=== PATIENT | male | born 1965 | race African-American/Black ===

== ENCOUNTER → 2017-11-05 | Outpatient (CLI) | payer OTHER ==
--- NOTE | 2017-11-20 17:01 | ONC ---
[facility] [address] [place] [address] RADIATION ONCOLOGY NOTE Name: NIHARIKAARLIN Rafia Room: [facility]#: [id number] Admission: 11/05/17 Attend Phys: Jerel Renteria MD Discharge: Date of : 65 Report #: [id number] THIS REPORT FOR: //name// CC: Jerel Muller MD DATE OF CONSULT: 11/05/2017 REFERRING PHYSICIANS: Include Claudia Muller MD; Dr. Elijah Costello; Al Quesada M.D.; and Dr. Yeager. [facility] phone is [phone]. 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 HISTORY OF PRESENT ILLNESS: The patient is a 52-year-old man who had bright red blood per rectum for about the last 6 months. He was referred to Dr. Yeager. He had a colonoscopy with Dr. Yeager on 10/07/2017 and he was found to have a fungating sessile nonobstructing ulcerated mass in the distal rectum with a diameter of 3 cm. It was noted to be about 2 cm from the anal verge on digital rectal examination. The pathology revealed a moderate to poorly differentiated rectal cancer. He was referred to the surgeon, Dr. Muller, and he performed a rigid proctosigmoidoscopy and he noted a firm fixed lesion at the top of the anorectal ring that involved 30% of the circumference of the rectum. The patient had an abdominal pelvic CT scan on 10/19/2017, which revealed no pelvic or retroperitoneal lymphadenopathy. There was no inguinal lymphadenopathy. The liver appeared normal. The patient presents for consideration for preoperative chemoradiotherapy. PAST MEDICAL HISTORY AND PAST SURGICAL HISTORY: The patient has hypertension and diabetes. MEDICATIONS: Metformin and amlodipine. ALLERGIES: TO PENICILLIN. FAMILY HISTORY: Paternal grandmother had breast cancer. 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 He has 2 daughters. Ethanol: The patient does not drink alcohol containing beverages. Cigarettes: The patient [place] [address] RADIATION ONCOLOGY NOTE Name: ARLIN BUNDY Room: [facility]#: [id number] Admission: 11/05/17 Attend Phys: Jerel Renteria MD Discharge: Date of : 65 Report #: [id number] REVIEW OF SYSTEMS: GENERAL: The patient did not have any fevers or chills. SKIN: The patient did not have any color changes, itching, bruising. LYMPH NODES: The patient did not have enlarged or painful glands in the neck. ENDOCRINE: The patient did not have any hot or cold intolerance. HEMATOLOGY AND IMMUNOLOGY: The patient did not have any anemia or recent bleeding. MUSCULOSKELETAL: The patient did not have any arthritis or painful swollen joints. HEAD AND NECK: The patient did not have any headaches or migraines. RESPIRATORY: The patient did not have any shortness of breath or cough. CARDIOVASCULAR: The patient did not have any palpitations. GASTROINTESTINAL: The patient did not have any nausea or vomiting. NEUROLOGIC: The patient did not have any focal weakness. PHYSICAL EXAMINATION: VITAL SIGNS: Height was 6 feet 4 inches, weight was 343 pounds, blood pressure 151/85, pulse 76, oxygen saturation 97%. LYMPH NODES: He had no palpable cervical, supraclavicular, or inguinal lymphadenopathy. GENERAL AND PSYCHIATRIC: The patient was alert, oriented, and in no acute distress. Eyes: Pupils were equal, round and reactive to accommodation. Extraocular movement were intact. Head, ears, nose and throat: Mouth had no visible lesions. HEART: Had a regular rate and rhythm without murmur. LUNGS: were clear to auscultation. ABDOMEN: Not tender. Spleen was not palpable. Liver was at the costal margin. EXTREMITIES: Had no clubbing, cyanosis or edema. NEUROLOGIC: Cranial nerves II to XII were intact. Sensation was intact. The patient had 5/5 strength in his extremities. RECTAL: Towards the tip of my finger, there may have been a firm lesion in the posterior midline area. I could not get my finger above the lesion. The patient was guaiac positive and that is using [employer] cards from lot #[id number] that will in 08/2019 using developer from lot #[id number], which expires in 03/2020. ASSESSMENT AND PLAN: The patient was offered preoperative radiation therapy with consideration for concurrent chemotherapy prior to surgical resection. This is based on studies such as the [place] rectal cancer study group, whose results were published in 2004. In that study, 823 patients with locally advanced rectal cancer were randomized to preoperative versus postoperative chemoradiotherapy. The preoperative arm had a better 5-[place] [address] RADIATION ONCOLOGY NOTE Name: ARLIN BUNDY Room: [facility]#: [id number] Admission: 11/05/17 Attend Phys: Jerel Renteria MD Discharge: Date of : 65 Report #: [id number] rate, where it was 6% versus 13% for patients who received postoperative radiation therapy and there were less side effects to preoperative radiation therapy. The patient was not interested in sperm banking. He does understand that infertility could be one of the side effects of treatment. So, the risks, benefits and logistics of radiation therapy were explained to the patient in detail. He gave his witnessed, informed consent to proceed with radiation treatments. He indicated that he is scheduled for a pelvic MRI at [facility] today. Thank you very much for this consult. <ELECTRONICALLY SIGNED> By: Jerel Renteria MD 11/20/17 1701 [id number] 1956Jerel Renteria MD /nt
== END ==
LOC: M.RTH 01:33
DX: C20 Malignant neoplasm of rectum (principal); I10 Essential (primary) hypertension; E11.9 Type 2 diabetes mellitus without complications